=== PATIENT | male | born 1985 | race Caucasian/White ===

== ENCOUNTER 2024-10-03 00:12 | Outpatient (CLI) | payer MEDICAID, SELFPAY | END 2024-10-03 00:13 | disposition home or self-care (01) | LOC: AMB 11-03 22:53 | PROVIDERS: Visit Provider Emergency Medicine | DX: R45.1 Restlessness and agitation (principal); F91.9 Conduct disorder, unspecified | CPT/HCPCS: A0425; A0427 ==

== ENCOUNTER 2024-10-04 23:50 | Outpatient (CLI) | payer MEDICAID, SELFPAY | END 2024-10-04 23:51 | disposition home or self-care (01) | LOC: AMB 10-10 19:47 | PROVIDERS: Visit Provider Family Medicine | DX: I10 Essential (primary) hypertension (principal); F29 Unspecified psychosis not due to a substance or known physiological condition | CPT/HCPCS: A0425; A0429 ==

== ENCOUNTER 2024-10-05 00:18 | Emergency (ER) | payer MEDICAID, SELFPAY ==
[2024-10-05 00:23] VITALS: BP 172/104; PULSE 99; RESP 16; TEMP 37.1; O2SAT 97; BMI 27.1
[2024-10-05 00:46] VITALS: O2SAT 97
--- NOTE | 2024-10-05 00:46 | CRLHL7_ITS ---
For Patients: As a result of the Cures Act, medical imaging exams and procedure reports are released immediately into your electronic medical record. You may view this report before your referring provider. If you have questions, please contact your health care provider. INDICATION: Chest pain. TECHNIQUE: Chest 1 view. COMPARISON: None. FINDINGS: Low lung volumes. No focal consolidation, pleural effusion, or pneumothorax. Probable small calcified granuloma in the left lung base. Normal heart size. Central pulmonary arteries appear mildly enlarged. No pulmonary vascular congestion. The bones are unremarkable. IMPRESSION: 1. The central pulmonary arteries appear mildly enlarged which can be seen with pulmonary hypertension. 2. No other acute cardiopulmonary findings. Dictated by Soheila Sanchez MD @ 10/05/2024 1:20:12 AM (Electronically Signed)
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
[2024-10-05] MEDS: ASPIRIN 81 MG TAB.CHEW 324 MG PO (00:52)
[2024-10-05 00:55] LABS: Basophils Percent Auto 0.5 % (0.0-3.0); Eosinophils Percent Auto 1.7 % (0.0-7.0); Hematocrit 39.2 % (37.0-53.0); Immature Granulocytes Pct Auto 0.9 %; Lymphocytes Percent Auto 16.5 % (20-44); Mean Corpuscular HGB Conc 33 gm/dL (32-36); Mean Corpuscular Hemoglobin 28 pg (26-34); Mean Corpuscular Volume 84 fL (80-100); Monocytes Percent Auto 13.1 % (0.0-11.0); Neutrophils Percent Auto 67.3 % (42.0-72.0); Platelet Count* 339 K/uL (140-440); Red Blood Count 4.65 m/uL (4.30-5.90); White Blood Count* 11.97 K/uL (4.50-11.00)
[2024-10-05 00:58] LABS: Slide Review Reflex No
[2024-10-05 01:11] LABS: Chloride* 101 mmol/L (96-114); Potassium* 3.8 mmol/L (3.6-5.1); Sodium* 134 mmol/L (135-149)
[2024-10-05 01:13] LABS: Creatinine* 0.9 mg/dL (0.5-1.5); Est. Creatinine Clearance* 118.56; Estimated Glomerular Filt Rate 110 ml/min
[2024-10-05 01:14] LABS: Anion Gap 8 mEq/L (7-15); Blood Urea Nitrogen* 16 mg/dL (5-24); Calcium* 9.5 mg/dL (8.4-10.6); Carbon Dioxide* 25 mmol/L (20-32); D Dimer Quantitative* 0.28 ug/ml (0.00-0.50); Glucose* 112 mg/dL (60-115)
[2024-10-05 01:16] LABS: Amphetamine Screen Urine Negative (Negative); Barbiturate Screen Urine Negative (Negative); Benzodiazepines Screen Urine POSITIVE (Negative); Cannabinoid Screen Urine POSITIVE (Negative); Cocaine Screen Urine Negative (Negative); Methadone Screen Urine Negative (Negative); Methamphetamines Screen Urine Negative (Negative); Opiate Screen Urine Negative (Negative); Oxycodone Screen Urine Negative (Negative); Phencyclidine Screen Urine Negative (Negative); Tricyclic Antidepressant Urine Negative (Negative)
[2024-10-05 01:19] LABS: Troponin, Point-of-Care* 0.03 ng/ml (0.01-0.04)
[2024-10-05 02:53] VITALS: BP 152/84; PULSE 85; RESP 16; TEMP 37.1; O2SAT 97
[2024-10-05 02:54] VITALS: BP 152/84; PULSE 85; RESP 16; TEMP 37.1
== END 2024-10-05 02:54 | disposition home or self-care (01) ==
LOC: ED 01:52
PROVIDERS: Emergency Provider Family Medicine
DX: R07.89 Other chest pain (principal); S92.001A Unspecified fracture of right calcaneus, initial encounter for closed fracture
CPT/HCPCS: 36415; 71045; 80048; 80306; 84443; 84484; 85025; 85379; 93005; 94761; 99284; 99285; A9270